=== PATIENT | female | born 1940 | race African-American/Black ===

== ENCOUNTER 2017-05-26 13:51 | Emergency (ER) | payer MEDICARE, BC ==
[~2017-05-26] VITALS: Ht 170.2 cm; Wt 75.0 kg
[2017-05-26] MEDS ORDERED: SODIUM CHLORIDE 0.9% 1,000 ML IV ONE (14:45)
[2017-05-26 15:26] LABS: BASOPHILS % 0.8 % (0.0-2.0); EOSINOPHILS % 1.2 % (0.0-5.0); HEMOGLOBIN. 12.2 g/dL (12.0-16.0); LYMPHOCYTES % 36.2 % (20.0-50.0); MEAN CORPUSCULAR HEMOGLOBIN 31.3 pg (28.0-32.0); MEAN CORPUSCULAR VOLUME 92.2 fL (81.0-99.0); MEAN PLATELET VOLUME 9.5 fl (7.4-10.4); MONOCYTES % 8.2 % (2.0-8.0); NEUTROPHILS % 53.6 % (40.0-76.0); PLATELET 281 x1000/uL (130-400); RED BLOOD CELL COUNT 3.91 mill/uL (4.2-5.4)
[2017-05-26 15:42] LABS: CARBON DIOXIDE 31 mEq/L (21-32); CHLORIDE 102 mEq/L (98-107); TROPONIN I < 0.02 ng/mL (0.00-0.04)
[2017-05-26] MEDS ORDERED: POTASSIUM CHLORIDE 20MEQ TABLET SR PO NR (16:00)
[2017-05-26 16:12] LABS: CLARITY URINE CLEAR (CLEAR); COLOR URINE YELLOW (YELLOW); GLUCOSE URINE NEGATIVE (NEGATIVE); KETONES URINE NEGATIVE (NEGATIVE); LEUKOCYTE ESTERASE URINE NEGATIVE (NEGATIVE); NITRITE URINE NEGATIVE (NEGATIVE); OCCULT BLOOD URINE NEGATIVE (NEGATIVE); PH URINE 7.5 (4.5-8.0); PROTEIN URINE NEGATIVE (NEGATIVE); UROBILINOGEN URINE 0.2 E.U./dL (0.2-1.0)
[2017-05-26 18:26] VITALS: BP 144/70
== END 2017-05-26 18:27 | disposition home or self-care (01) ==
LOC: ER 14:07 → CANBEDREQ 19:43
DX: E86.0 Dehydration (principal); I10 Essential (primary) hypertension
CPT/HCPCS: 36415; 71010; 80053; 81003; 83605; 83880; 84484; 85025; 87040; 87086; 93005; 96360; 99285; J7030

== ENCOUNTER 2017-08-27 08:40 | Emergency (ER) | payer MEDICARE, BC ==
[~2017-08-27] VITALS: Ht 167.6 cm; Wt 82.0 kg
[2017-08-27] MEDS ORDERED: MAGNESIUM/ALUMINUM HYDROXIDE/SIMETHICONE 30ML UDC PO STA (11:05)
[2017-08-27] MEDS ORDERED: FAMOTIDINE 20MG TABLET PO STA (11:05)
[2017-08-27] MEDS ORDERED: VISCOUS LIDOCAINE 2% 15 ML UDC MM ONE (11:15)
[2017-08-27 11:27] VITALS: BP 159/92
[2017-08-27 11:35] LABS: CHLORIDE 104 mEq/L (98-107)
[2017-08-27 11:38] LABS: BASOPHILS % 0.7 % (0.0-2.0); EOSINOPHILS % 0.6 % (0.0-5.0); HEMATOCRIT. 35.6 % (36.0-48.0); HEMOGLOBIN. 11.8 g/dL (12.0-16.0); LYMPHOCYTES % 30.2 % (20.0-50.0); MEAN CORPUSCULAR HEMOGLOBIN 30.6 pg (28.0-32.0); MEAN PLATELET VOLUME 9.9 fl (7.4-10.4); MONOCYTES % 6.6 % (2.0-8.0); NEUTROPHILS % 61.9 % (40.0-76.0); PLATELET 276 x1000/uL (130-400); RED BLOOD CELL COUNT 3.87 mill/uL (4.2-5.4); RED CELL DISTRIBUTION WIDTH 13.1 % (11.6-14.6)
== END 2017-08-27 13:48 | disposition home or self-care (01) ==
LOC: ER 08:54
DX: K29.00 Acute gastritis without bleeding (principal); K27.9 Peptic ulcer, site unspecified, unspecified as acute or chronic, without hemorrhage or perforation; I10 Essential (primary) hypertension; Z91.041 Radiographic dye allergy status; Z88.0 Allergy status to penicillin
CPT/HCPCS: 36415; 74176; 80053; 83690; 85025; 99285

== ENCOUNTER 2018-01-13 01:21 | Emergency (ER) | payer MEDICARE, BC ==
[~2018-01-13] VITALS: Ht 167.6 cm; Wt 83.0 kg
[2018-01-13 01:58] VITALS: BP 145/80
[2018-01-13] MEDS ORDERED: DIPHENHYDRAMINE 25MG CAPSULE PO ONE (02:30)
== END 2018-01-13 05:00 | disposition home or self-care (01) ==
LOC: ER 04:29
DX: L29.9 Pruritus, unspecified (principal); I10 Essential (primary) hypertension; Z91.018 Allergy to other foods
CPT/HCPCS: 99282; Q0163

== ENCOUNTER 2018-01-13 15:46 | Emergency (ER) | payer MEDICARE, BC ==
[~2018-01-13] VITALS: Ht 167.6 cm; Wt 95.0 kg
[2018-01-13 15:56] VITALS: BP 112/64
== END 2018-01-14 00:40 | disposition home or self-care (01) ==
LOC: ER 01-14 00:31
DX: L29.9 Pruritus, unspecified (principal); I10 Essential (primary) hypertension; F41.9 Anxiety disorder, unspecified; F32.9 Major depressive disorder, single episode, unspecified; Z90.710 Acquired absence of both cervix and uterus; Z91.018 Allergy to other foods
CPT/HCPCS: 99282

== ENCOUNTER 2018-09-30 09:02 | Emergency (ER) | payer MEDICARE, BC ==
[~2018-09-30] VITALS: Ht 167.6 cm; Wt 78.0 kg
[2018-09-30 10:58] VITALS: BP 158/81
== END 2018-09-30 16:05 | disposition left against medical advice (07) ==
LOC: ER 09:02
DX: Z53.21 Procedure and treatment not carried out due to patient leaving prior to being seen by health care provider (principal)

== ENCOUNTER 2018-10-01 14:41 | Emergency (ER) | payer MEDICARE, BC | END 2018-10-01 15:03 | disposition left against medical advice (07) | LOC: ER 14:41 | DX: Z53.21 Procedure and treatment not carried out due to patient leaving prior to being seen by health care provider (principal) ==